=== PATIENT | male | born 1980 | race Asian ===

== ENCOUNTER 2016-06-24 13:44 | Emergency (ER) | payer MEDICARE, MEDICAID | END 2016-06-24 19:25 | disposition left against medical advice (07) | LOC: D.ER 13:44 | DX: S39.92XA Unspecified injury of lower back, initial encounter (principal); X50.0XXA Overexertion from strenuous movement or load, initial encounter; X50.9XXA Other and unspecified overexertion or strenuous movements or postures, initial encounter; Y93.89 Activity, other specified; Y92.89 Other specified places as the place of occurrence of the external cause ==

== ENCOUNTER 2016-06-26 17:19 | Emergency (ER) | payer OTHER, MEDICAID | END 2016-06-26 21:32 | disposition left against medical advice (07) | LOC: D.ER 17:19 | DX: M54.5 Low back pain (principal) ==

== ENCOUNTER 2016-06-27 16:10 | Emergency (ER) | payer OTHER, MEDICAID | END 2016-06-27 20:20 | disposition home or self-care (01) | LOC: D.ER 16:10 | DX: M54.30 Sciatica, unspecified side (principal); S39.012A Strain of muscle, fascia and tendon of lower back, initial encounter; X58.XXXA Exposure to other specified factors, initial encounter; Y93.89 Activity, other specified; Y92.89 Other specified places as the place of occurrence of the external cause; M62.838 Other muscle spasm; M54.5 Low back pain; I10 Essential (primary) hypertension; E78.5 Hyperlipidemia, unspecified; F17.200 Nicotine dependence, unspecified, uncomplicated ==

== ENCOUNTER 2016-10-10 10:30 | Emergency (ER) | payer MEDICARE, MEDICAID | END 2016-10-10 11:11 | disposition home or self-care (01) | LOC: D.ER 10:30 | DX: M54.9 Dorsalgia, unspecified (principal); G89.29 Other chronic pain; M79.1 Myalgia; I10 Essential (primary) hypertension ==

== ENCOUNTER 2016-12-28 17:27 | Emergency (ER) | payer MEDICARE, MEDICAID | END 2016-12-28 19:14 | disposition home or self-care (01) | LOC: D.ER 17:27 | DX: S39.012A Strain of muscle, fascia and tendon of lower back, initial encounter (principal); X58.XXXA Exposure to other specified factors, initial encounter; Y93.89 Activity, other specified; Y92.029 Unspecified place in mobile home as the place of occurrence of the external cause; M54.5 Low back pain; I10 Essential (primary) hypertension; F17.200 Nicotine dependence, unspecified, uncomplicated ==

== ENCOUNTER 2017-01-24 12:42 | Emergency (ER) | payer MEDICARE, MEDICAID | END 2017-01-24 16:50 | disposition home or self-care (01) | LOC: D.ER 12:42 | DX: M54.16 Radiculopathy, lumbar region (principal); I10 Essential (primary) hypertension; F17.200 Nicotine dependence, unspecified, uncomplicated ==

== ENCOUNTER 2017-02-26 12:32 | Emergency (ER) | payer MEDICARE, MEDICAID | END 2017-02-26 14:05 | disposition home or self-care (01) | LOC: D.ER 12:32 | DX: M54.16 Radiculopathy, lumbar region (principal); I10 Essential (primary) hypertension ==

== ENCOUNTER 2017-03-27 18:19 | Emergency (ER) | payer MEDICARE, MEDICAID | END 2017-03-27 23:30 | disposition home or self-care (01) | LOC: D.ER 18:19 | DX: M51.26 Other intervertebral disc displacement, lumbar region (principal); I10 Essential (primary) hypertension ==

== ENCOUNTER 2017-05-06 16:27 | Emergency (ER) | payer MEDICARE, MEDICAID ==
[2017-05-06 18:10] LABS: APPEARANCE CLEAR (CLEAR); BILIRUBIN NEGATIVE (NEGATIVE); COLOR YELLOW (YELLOW); GLUCOSE NEGATIVE (NEGATIVE); KETONE NEGATIVE (NEGATIVE); NITRITE NEGATIVE (NEGATIVE); PROTEIN NEGATIVE (NEGATIVE); SPECIFIC GRAVITY 1.025 (1.005-1.020); UROBILINOGEN NORMAL (NORMAL)
== END 2017-05-06 19:26 | disposition home or self-care (01) ==
LOC: D.ER 16:27
PROVIDERS: Nurse Practitioner Family
DX: R10.32 Left lower quadrant pain (principal); I10 Essential (primary) hypertension

== ENCOUNTER 2017-05-30 12:25 | Emergency (ER) | payer MEDICARE, MEDICAID ==
[2017-05-30 13:09] LABS: BASOPHILS 0.5 % (0-2); EOSINOPHILS 2.4 % (0-7); HEMATOCRIT 43.7 % (42.0-54.0); IMMATURE GRANULOCYTES 0.6 % (0-5); LYMPHOCYTES 20.9 % (15-50); MCH 28.3 pg (26.0-34.0); MCV 88.5 fL (80.0-100.0); MEAN PLATELET VOLUME 9.7 fL (7.4-10.4); MONOCYTES 6.7 % (2-11); NEUTROPHILS 68.9 % (40-80); PLATELET COUNT 244 10x3/uL (130-400); RBC 4.94 10x6/uL (4.20-6.10); RDW 13.5 % (11.5-14.5); WBC 10.4 10x3/uL (4.8-10.8)
[2017-05-30 13:19] LABS: APPEARANCE CLEAR (CLEAR); BILIRUBIN NEGATIVE (NEGATIVE); COLOR YELLOW (YELLOW); GLUCOSE NEGATIVE (NEGATIVE); KETONE NEGATIVE (NEGATIVE); NITRITE NEGATIVE (NEGATIVE); PROTEIN NEGATIVE (NEGATIVE); UROBILINOGEN NORMAL (NORMAL)
[2017-05-30 13:23] LABS: ALBUMIN 3.7 g/dL (3.4-5.0); ANION GAP 13.2 mmol/L (8-16); BILIRUBIN - TOTAL 0.17 mg/dL (0.2-1.3); CALCIUM 8.9 mg/dL (8.5-10.1); CARBON DIOXIDE 28.6 mmol/L (21.0-32.0); CREATININE - SERUM 1.2 mg/dL (0.6-1.3); POTASSIUM - SERUM 4.8 mmol/L (3.5-5.1); PROTEIN - SERUM 6.9 g/dL (6.4-8.2)
== END 2017-05-30 16:30 | disposition home or self-care (01) ==
LOC: D.ER 12:25
PROVIDERS: Emergency Medicine
DX: R10.9 Unspecified abdominal pain (principal); I10 Essential (primary) hypertension

== ENCOUNTER 2017-06-23 13:19 | Emergency (ER) | payer MEDICARE, MEDICAID | END 2017-06-23 16:47 | disposition home or self-care (01) | LOC: D.ER 13:19 | DX: M54.5 Low back pain (principal); I10 Essential (primary) hypertension ==

== ENCOUNTER 2017-06-29 14:13 | Emergency (ER) | payer MEDICARE, MEDICAID | END 2017-06-29 16:45 | disposition home or self-care (01) | LOC: D.ER 14:13 | DX: M54.30 Sciatica, unspecified side (principal); S39.012A Strain of muscle, fascia and tendon of lower back, initial encounter; X58.XXXA Exposure to other specified factors, initial encounter; Y93.9 Activity, unspecified; Y92.9 Unspecified place or not applicable; M54.5 Low back pain; I10 Essential (primary) hypertension ==